=== PATIENT | male | born 1960 ===

== ENCOUNTER 2017-06-19 09:12 | Emergency (ER) | payer MEDICAID ==
[2017-06-19 09:25] VITALS: BMI 31.2
[2017-06-19 09:27] VITALS: BP 184/89; PULSE 116; RESP 20; TEMP 100; O2SAT 96
[2017-06-19] MEDS ORDERED: Sodium Chloride 0.9% 1,000 ML IV STA (09:41)
[2017-06-19] MEDS ORDERED: DiphenhydrAMINE 50 mg/ml Inj IV STA (09:42)
[2017-06-19] MEDS ORDERED: DiphenhydrAMINE 50 mg/ml Inj ONE (09:48)
--- NOTE | 2017-06-19 10:11 | ED PDOC ---
HPI: Skin/Bite Injury Time Seen by Provider: 06/19/17 09:24 Chief Complaint (Nursing): Abnormal Skin Integrity Chief Complaint (Provider): Rash History Per: Family (son) History/Exam Limitations: no limitations Onset/Duration Of Symptoms: Days (chronic) Current Symptoms Are (Timing): Still Present Additional Complaint(s): Oc Tomas is a 56 year old male with a previous history of alcohol abuse presenting to the ED accompanied by his son for an evaluation of pruritic rashes present on the right and left side of his face, parts of his scalp, right and left front side of his abdomen, and a few patches in lower extremities bilaterally occurring for 1 year. The patient's son additionally states the patient had his 1st meal last night after not eating for 4 days and then subsequently developed shaking prompting their ED visit today. The shaking has resolved prior to ED visit today. The patient denies any changes in soap or lotion use, changes in activities, shortness of breath, difficulty breathing, nausea, vomiting, diarrhea, abdominal pain, dysuria, urinary frequency, urinary incontinence, chest pain, fever, chills, dizziness, numbness, tingling, weakness , or headache. PMD: None Provided Past Medical History Reviewed: Historical Data, Nursing Documentation, Vital Signs Vital Signs: Last Vital Signs Temp 100 F H 06/19/17 09:25 Pulse 116 H 06/19/17 09:25 Resp 20 06/19/17 09:25 BP 184/89 H 06/19/17 09:25 Pulse Ox 96 06/19/17 10:28 - Medical History Other PMH: alcohol addiction - Surgical History Surgical History: No Surg Hx - Family History Family History: States: No Known Family Hx - Social History Current smoker - smoking cessation education provided: No Ex-Smoker (has not smoked in the last 12 months): No Alcohol: > 2 Drinks/Day Drugs: Denies - Home Medications Home Medications: Ambulatory Orders Medication Instructions Recorded DiphenhydrAMINE [Benadryl] 25 mg PO TID PRN 5 Days cap 06/19/17 predniSONE [predniSONE Tab] 20 mg PO BID 5 Days tab 06/19/17 - Allergies Allergies/Adverse Reactions: Allergies Allergy/AdvReac Type Severity Reaction Status Date / Time Penicillins Allergy SWELLING Verified 06/19/17 09:38 Review of Systems ROS Statement: Except As Marked, All Systems Reviewed And Found Negative Constitutional: Positive for: Other (decreased appetite; shaking (resolved upon ED evaluation)). Negative for: Fever, Chills, Weakness Cardiovascular: Negative for: Chest Pain Respiratory: Negative for: Shortness of Breath Gastrointestinal: Negative for: Nausea, Vomiting, Abdominal Pain, Diarrhea Genitourinary Male: Negative for: Dysuria, Frequency, Incontinence Skin: Positive for: Rash (pruritic rash present on the right and left side of his face, parts of his scalp, right and left front side of his abdomen, and a few patches in lower extremities bilaterally) Neurological: Negative for: Weakness, Numbness, Headache, Dizziness, Other (no tingling) Physical Exam - Reviewed Nursing Documentation Reviewed: Yes Vital Signs Reviewed: Yes - Physical Exam Appears: Positive for: Non-toxic, No Acute Distress Head Exam: Positive for: ATRAUMATIC, NORMOCEPHALIC Skin: Positive for: Warm, Dry, Rash (patches with mild blanching, erythematous, scaly, nonfluctuant present on right and left side of scalp on face, right and left side of the front abdomen, few patches present on bilateral lower extremities; present in an eczema or dermatitis pattern) Eye Exam: Positive for: Normal appearance, EOMI, PERRL. Negative for: Periorbital swelling ENT: Positive for: Normal ENT Inspection, Pharynx Is (normal). Negative for: Pharyngeal Erythema, Tonsillar Swelling, Other (no lip swelling) Neck: Positive for: Normal, Painless ROM, Supple Cardiovascular/Chest: Positive for: Regular Rate, Rhythm, Chest Non Tender. Negative for: Edema, Murmur Respiratory: Positive for: Normal Breath Sounds. Negative for: Wheezing, Respiratory Distress Gastrointestinal/Abdominal: Positive for: Normal Exam, Soft. Negative for: Tenderness Back: Positive for: Normal Inspection. Negative for: L CVA Tenderness, R CVA Tenderness Extremity: Positive for: Normal ROM. Negative for: Pedal Edema, Deformity Neurologic/Psych: Positive for: Alert, Oriented (x3). Negative for: Motor/ Sensory Deficits - Laboratory Results Result Diagrams: 06/19/17 10:17 06/19/17 10:17 Interpretation Of Abn Labs: 3.4 k - ECG O2 Sat by Pulse Oximetry: 96 (RA) Pulse Ox Interpretation: Normal - Progress ED Course And Treament: 1152: Crisis saw pt. Does not meet criteria for admit. Stable. AAOx3. Tolerated PO. Fu with pcp. Medical Decision Making Medical Decision Making: Time: 09:24 Impression: Rash to right and left side of scalp on face, right and left side of front abdomen, few patches on bilateral lower extremities Plan: * Alcohol Serum * CMP * CBC (with differential) * Benadryl 25 mg IV * NS 0.9% 1,000 ml IV 1,000 mls/hr * Tylenol 650 mg PO * Prednisone Tab 60 mg PO * Crisis Evaluation As Ordered * Reevaluation Scribe Attestation: Documented by Sue Santos, acting as a scribe for Pal Richter MD. Provider Scribe Attestation: All medical record entries made by the Scribe were at my direction and personally dictated by me. I have reviewed the chart and agree that the record accurately reflects my personal performance of the history, physical exam, medical decision making, and the department course for this patient. I have also personally directed, reviewed, and agree with the discharge instructions and disposition. Disposition - Clinical Impression Clinical Impression: HTN (hypertension), Alcohol abuse, Dermatitis - Patient ED Disposition Is Patient to be Admitted: No Counseled Patient/Family Regarding: Studies Performed, Diagnosis, Need For Followup, Rx Given - Disposition Referrals: [facility] [Outside] - 06/20/17 Disposition: Routine/Home Disposition Time: 11:55 Condition: STABLE Additional Instructions: Return if not better in 3 days. Prescriptions: DiphenhydrAMINE [Benadryl] 25 mg PO TID PRN 5 Days cap PRN Reason: Itching / Pruritus predniSONE [predniSONE Tab] 20 mg PO BID 5 Days tab Instructions: Dermatitis (ED), Abuse of Alcohol (ED), Hypertension (ED) Print Language: SAMI
[2017-06-19 10:29] LABS: BASO # 0.1 K/uL (0.0-0.2); BASO % 0.7 % (0.0-2.0); EOS % 0.1 % (0.0-4.0); LYMPH # 0.4 K/uL (1.0-4.3); LYMPH % 5.3 % (20.0-40.0); MEAN CELL VOLUME 94.4 fl (80.0-94.0); MEAN CORPUSCULAR HEMOGLOBIN 31.5 pg (27.0-31.0); MEAN CORPUSCULAR HGB CONC 33.4 g/dL (33.0-37.0); MEAN PLATELET VOLUME 8.9 fl (7.2-11.7); MONO # 0.8 K/uL (0.0-0.8); NEUT # 6.9 K/uL (1.8-7.0); NEUT % 83.9 % (50.0-75.0); NRBC % 0.1 % (0.0-0.0); PLATELET COUNT 137 K/uL (130-400); RBC 4.46 Mil/uL (4.40-5.90); RED CELL DISTRIBUTION WIDTH 13.8 % (11.5-14.5); WHITE BLOOD COUNT 8.2 K/uL (4.8-10.8)
[2017-06-19 10:41] LABS: ALB/GLOB RATIO 1.3 (1.0-2.1); ALBUMIN 4.7 g/dL (3.5-5.0); ALT/SGPT 41 U/L (21-72); AST/SGOT 66 U/L (17-59); BLOOD UREA NITROGEN 5 mg/dl (9-20); CALCIUM 9.5 mg/dL (8.4-10.2); GFR AFRICAN-AMERICAN > 60; GFR NON-AFRICAN AMERICAN > 60
[2017-06-19] MEDS ORDERED: Potassium Chloride 20 mEq ER Tab PO STA (11:54)
[2017-06-19] MEDS ORDERED: Potassium Chloride 20 mEq ER Tab PO ONE (12:23)
[2017-06-19 12:59] LABS: BASOPHIL 1 % (0-2); LYMPHOCYTE 6 % (20-50); MONOCYTE 9 % (0-10); NEUTROPHIL 84 % (42-75); PLATELET ESTIMATE NORMAL (NORMAL); TOTAL CELLS COUNTED 100
== END 2017-06-19 12:31 | disposition home or self-care (01) ==
LOC: H.ER 09:12 → EDBD 09:12 → H.ER 12:31
DX: F10.10 Alcohol abuse, uncomplicated (principal); L30.9 Dermatitis, unspecified; I10 Essential (primary) hypertension; Z87.891 Personal history of nicotine dependence; Z88.0 Allergy status to penicillin
CPT/HCPCS: 80053; 85025; 96360; 96361; 99282; G0480; J1200; J7040

== ENCOUNTER 2017-08-21 16:10 | Emergency (ER) | payer MEDICAID, OTHER ==
[2017-08-21 16:11] VITALS: BMI 31.2
[2017-08-21 16:24] VITALS: TEMP 98.8
--- NOTE | 2017-08-21 16:51 | ED PDOC ---
HPI: Skin/Bite Injury Time Seen by Provider: 08/21/17 16:36 Chief Complaint (Nursing): Alcohol Ingestion Chief Complaint (Provider): Rash History Per: Patient History/Exam Limitations: no limitations Onset/Duration Of Symptoms: Days (years) Additional Complaint(s): Oc Tomas is a 56 year old male with a previous history of alcohol abuse presenting to the ED accompanied by his son for an evaluation of pruritic rashes present on the right and left front side of his abdomen, and a few patches in lower extremities bilaterally occurring for years. The patient denies any changes in soap or lotion use, changes in activities, shortness of breath, difficulty breathing, nausea, vomiting, diarrhea, abdominal pain, dysuria, urinary frequency, urinary incontinence, chest pain, fever, chills, dizziness, numbness, tingling, weakness, or headache. Past Medical History Reviewed: Historical Data, Nursing Documentation, Vital Signs Vital Signs: Last Vital Signs Temp 98.8 F 08/21/17 16:20 Pulse 109 H 08/21/17 16:20 Resp 18 08/21/17 16:20 BP 136/75 08/21/17 16:20 Pulse Ox 95 08/21/17 16:53 - Medical History PMH: Denies: Diabetes, Hepatitis, HIV, HTN, Seizures, Sexually Transmitted Disease Other PMH: dermatitis - Surgical History Surgical History: No Surg Hx - Family History Family History: States: Unknown Family Hx - Social History Current smoker - smoking cessation education provided: No Alcohol: > 2 Drinks/Day Drugs: Denies - Home Medications Home Medications: Ambulatory Orders Medication Instructions Recorded DiphenhydrAMINE [Benadryl] 25 mg PO TID PRN 5 Days cap 06/19/17 predniSONE [predniSONE Tab] 20 mg PO BID 5 Days tab 06/19/17 DiphenhydrAMINE [Benadryl] 25 mg PO TID PRN 5 Days cap 08/21/17 predniSONE [predniSONE Tab] 20 mg PO BID 5 Days tab 08/21/17 - Allergies Allergies/Adverse Reactions: Allergies Allergy/AdvReac Type Severity Reaction Status Date / Time Penicillins Allergy SWELLING Verified 08/21/17 16:24 Review of Systems Constitutional: Negative for: Fever, Weakness Eyes: Negative for: Vision Change ENT: Negative for: Ear Discharge, Nose Pain Cardiovascular: Negative for: Chest Pain Respiratory: Negative for: Shortness of Breath Gastrointestinal: Negative for: Nausea, Vomiting, Abdominal Pain Musculoskeletal: Negative for: Shoulder Pain Skin: Positive for: Rash Neurological: Negative for: Weakness, Numbness Physical Exam - Reviewed Nursing Documentation Reviewed: Yes Vital Signs Reviewed: Yes - Physical Exam Appears: Positive for: Non-toxic, No Acute Distress Head Exam: Positive for: ATRAUMATIC, NORMAL INSPECTION, NORMOCEPHALIC Skin: Positive for: Rash (Scaling, erythematous, mild blanching, no dc or fluctuance, no tenderness: L abd 2cm patch; R abd 12cm diamter patch; 1cm diameter several patches b/l lower extremities) Eye Exam: Positive for: EOMI, Normal appearance, PERRL ENT: Positive for: Normal ENT Inspection Neck: Positive for: Normal, Painless ROM Cardiovascular/Chest: Positive for: Regular Rate, Rhythm Respiratory: Positive for: CNT, Normal Breath Sounds Gastrointestinal/Abdominal: Positive for: Bowel Sounds, Soft. Negative for: Tenderness Back: Positive for: Normal Inspection. Negative for: L CVA Tenderness, R CVA Tenderness Extremity: Positive for: Normal ROM. Negative for: Tenderness, Pedal Edema Neurologic/Psych: Positive for: Alert, Oriented - ECG O2 Sat by Pulse Oximetry: 95 Pulse Ox Interpretation: Normal - Progress ED Course And Treament: 1758: Stable. AAOx3. Pain free. Chronic dermatitis. Here for same previous. Meds given last time helped. Disposition - Clinical Impression Clinical Impression: Dermatitis - Patient ED Disposition Is Patient to be Admitted: No Counseled Patient/Family Regarding: Diagnosis, Need For Followup, Rx Given - Disposition Referrals: [facility] [Outside] - 08/22/17 Disposition: Routine/Home Disposition Time: 17:30 Condition: STABLE Additional Instructions: Return if not better in 3 days. Prescriptions: DiphenhydrAMINE [Benadryl] 25 mg PO TID PRN 5 Days cap PRN Reason: Itching / Pruritus predniSONE [predniSONE Tab] 20 mg PO BID 5 Days tab Instructions: Dermatitis Print Language: ARMENIAN
[2017-08-21 18:08] VITALS: BP 138/88; PULSE 90; RESP 16; O2SAT 97
== END 2017-08-21 22:35 | disposition home or self-care (01) ==
LOC: H.ER 16:10
DX: L30.9 Dermatitis, unspecified (principal); Z88.0 Allergy status to penicillin